=== PATIENT | female | born 1980 | race Caucasian/White ===

== ENCOUNTER → 2020-02-10 08:26 | Outpatient (BNVA) | payer OTHER, SELFPAY | PROVIDERS: Family Provider Family Medicine; PCP Family Medicine; Visit Provider Urology | DX: N31.9 Neuromuscular dysfunction of bladder, unspecified (principal); N30.80 Other cystitis without hematuria; R32 Unspecified urinary incontinence | CPT/HCPCS: 81001 ==

== ENCOUNTER → 2020-08-16 09:22 | Outpatient (BNVA) | payer BC, SELFPAY | PROVIDERS: Family Provider Family Medicine; PCP Family Medicine; Referring Provider Family Medicine; Visit Provider Orthopaedic Surgery | DX: M17.0 Bilateral primary osteoarthritis of knee (principal); M25.562 Pain in left knee | CPT/HCPCS: 73560; 73565 ==

== ENCOUNTER 2021-02-11 21:15 | Emergency (ER) | payer BC, SELFPAY ==
[2021-02-11 21:15] VITALS: BP 133/80; PULSE 82; RESP 16; TEMP 37.4; O2SAT 94; BMI 39.9
--- NOTE | 2021-02-11 21:50 | XRR_ITS ---
PROCEDURE INFORMATION: Exam: XR Chest Exam date and time: 02/11/2021 9:50 PM Age: 40 years old Clinical indication: Dyspnea; Additional info: SOB TECHNIQUE: Imaging protocol: XR of the chest. Views: 1 view. COMPARISON: CR XR KUB [id number] 03/22/2017 7:46 AM FINDINGS: Lungs: Patchy poorly defined ground-glass foci in the lungs greater on right than left. No vascular dilation. Symmetric lung volumes. Pleural spaces: Unremarkable. No pleural effusion. No pneumothorax. Heart/Mediastinum: Unremarkable. No cardiomegaly. Bones/joints: Unremarkable. XR/XR chest 1V portable [id number] IMPRESSION: Patchy airspace disease in the lungs. Suspicious findings for atypical pneumonia. Recommend correlation for COVID-19 pneumonia.
--- NOTE | 2021-02-11 22:01 | ED_ITS ---
HPI - COVID General: Chief Complaint: COVID symptoms Stated Complaint: sob , dx with covid Time Seen by Provider: 02/11/21 22:01 Triage information: Has fever, cough or shortness of breath . Exposure to COVID + person last 14 days History of Present Illness: HPI Narrative: Patient presents with known positive Covid test. Patient symptoms started on January 30. She is out of quarantine 2 days ago. Was diagnosed with pneumonia she said the starting Covid took 1 day of antibiotic. MD complaint: known COVID positive Prior covid testing: yes, results known COVID 19 common symptoms: positive non-productive cough and dyspnea; negative fever(s), chills, body aches, headache(s), throat pain, nasal congestion, nausea or vomiting COVID 19 other sytmptoms: negative chest pain Onset (ago): day(s) Severity: mild Treatment prior to arrival: acetaminophen and ibuprofen COVID Results: No Data to Display Review of Systems Const: Denies: fever(s), chills or body aches Eyes: Denies: change in vision or blurry vision ENMT: Denies: throat pain or nasal congestion Card: Denies: chest pain or dyspnea on exertion Resp: Reports: dyspnea and non-productive cough GI: Denies: abdominal pain, nausea or vomiting Musc: Denies: extremity pain Skin/Breast: Denies: rash Neuro: Denies: headache(s) Psych: Denies: anxiety or depression Efe/Lymph: Denies: easy bruising PFS ED PFSH: Medical History (Updated 02/11/21 @ 22:51 by MARINO Lyons) Neurogenic bladder Recurrent UTI Status post hysteroscopy Urinary incontinence Surgical History History of removal of neck cyst Status post abdominoplasty Status post arthroscopic knee surgery Status post section x 3 Status post dilation and curettage Status post endometrial ablation Status post hysterectomy Status post repair of ligament of ankle Status post surgical removal of ganglion cyst right wrist volar ganglion Family History Mother , AT AGE 40-MVA BIPOLAR,MIGRAINE HEADACHES No problems noted. Grandfather CAD (coronary artery disease) Hypertension Social History Smoking and tobacco status: former smoker Alcohol intake: current Alcohol intake frequency: 0-2 Drinks per Day Marital status: Current occupational status: employed Physical Exam Const: COMMON NORMALS: no acute distress, average body habitus and patient oriented x3 HENMT: COMMON NORMALS: normocephalic HEAD & SCALP: normal to inspection and normocephalic FACE & SINUS: normal facial exam Eye: COMMON NORMALS: conjunctivae normal GENERAL EYE: appearance normal, both eyes and all related structures CONJUNCTIVA: Yes conjunctivae normal Neck/C-Spine: COMMON NORMALS: no JVD Chest: COMMONS NORMALS: normal inspection of the chest Resp: COMMON NORMALS: normal respiratory effort and clear to auscultation bilaterally AUSCULTATION: clear to auscultation bilaterally Cardio: COMMON NORMALS: no JVD, regular rate and regular rhythm RATE: regular rate RHYTHM: regular rhythm GI: INSPECTION: Yes normal to inspection Extremity: COMMON NORMALS: normal to inspection and full ROM Neuro: COMMON NORMALS: patient oriented x3 Course Vital Signs: Vital signs: Vital Signs Temperature 98.7 F 02/11/21 23:38 Pulse Rate 80 02/11/21 23:38 Respiratory Rate 18 02/11/21 23:38 Blood Pressure 123/80 02/11/21 22:36 Pulse Oximetry 95 02/11/21 23:38 MDM - COVID MDM Narrative: Medical decision making narrative: Patient just finished ntine for Covid. Was placed on antibiotic and took 1 day prior to having Covid. Because she had pneumonia. Radiology reveals patchy airspace disease for atypical pneumonia consistent with past Covid diagnosed with patient placed on a steroid and antibiotic and asked to follow-up primary care provider patient follow signs were stable throughout stay here. COVID Results: No Data to Display Discharge Plan Discharge Patient Disposition: Home Clinical Impression: COVID-19 Condition: Stable Prescriptions: New Zithromax Z-Rolo 250 mg tablet See Rx Instructions .ROUTE .COMPLEX Qty: 6 RF: 0 dexamethasone 6 mg tablet 6 mg PO DAILY Qty: 7 RF: 0 No Action cyclobenzaprine 15 mg capsule,extended release 24hr 15 mg PO .QHS RF: 0 oxycodone 5 mg capsule 5 mg PO Q12H PRNRF: 0 topiramate [Topamax] 100 mg tablet 125 mg PO .QHS RF: 0 prednisone 10 mg tablet 10 mg PO DAILY RF: 0 polyethylene glycol 3350 [Miralax] 17 gram/dose powder 17 gm PO DAILY RF: 0 ciprofloxacin HCl 500 mg tablet 500 mg PO BID Qty: 42 RF: 6 Discharge Orders: Discharge ED (Routine); Ordered 02/11/21 Ordered By: Toan Reynolds Referrals: Genna Thorne MD [Primary Care Provider] - Discharge Diet: Usual diet Discharge Activity: Resume usual activity Activity Restrictions/Additional Instructions: Follow-up with medical provider as directed. Take medications as prescribed. Return to the ER or your medical provider if condition worsens. Please read and understand discharge instructions. If any questions ask please. Coding Level of Care Code ED Mechanical Adjuster for Nolan Fwgregory Exam Comprehensive
[2021-02-11 22:32] VITALS: O2SAT 94
[2021-02-11 22:36] VITALS: BP 123/80; PULSE 70; RESP 17; O2SAT 94
[2021-02-11] MEDS: azithromycin 250 mg Tablet 500 MG PO (23:08)
[2021-02-11] MEDS: dexamethasone 4 mg Tablet 10 MG PO (23:08)
[2021-02-11] MEDS: ondansetron 4 MG Tablet 8 MG PO (23:27)
[2021-02-11 23:38] VITALS: PULSE 80; RESP 18; TEMP 37.1; O2SAT 95
== END 2021-02-11 23:30 | disposition home or self-care (01) ==
PROVIDERS: Emergency Provider Nurse Practitioner Family; PCP Family Medicine
DX: U07.1 COVID-19 (principal); Z87.891 Personal history of nicotine dependence
CPT/HCPCS: 71045; 99283; J8540; Q0144; Q0162

== ENCOUNTER 2021-02-24 07:14 | Outpatient (CLI) | payer BC, SELFPAY ==
--- NOTE | 2021-02-24 07:25 | XR_ITS ---
WS: [id number] XR chest 2V* [id number] REASON FOR EXAM: DYSPNEA, POST COVID FINDINGS: The previously identified patchy infiltrative changes in the right upper midlung and right lower and left lower lungs shows significant resolution with minimal residual abnormality. No new findings. XR/XR chest 2V* [id number] IMPRESSION: Significant resolution of previously defined infiltrates. Small residuals rand antonio
--- NOTE | 2021-02-24 07:25 | USCV_ITS ---
Zainab Gee Age: 40 Gender: F : 1980 Exam Date: 02/24/2021 07:40 Ordering Phys: Genna Thorne MD Technologist: Amy Rojas [place]am [place] [facility] [place]: COVID + STILL WITH SYMPTOMS. WATER RETENTION CHEST PAIN BP: / HR: 61 Rhythm: Sinus Technical Quality: Adequate MEASUREMENTS (Male / Female) Normal Values 2D ECHO LV Diastolic Diameter PLAX 4.1 cm 4.2 - 5.9 / 3.9 - 5.3 cm LV Systolic Diameter PLAX 3.3 cm LV Chamber Size 4.3 cm IVS Diastolic Thickness 1.1 cm 0.6 - 1.0 / 0.6 - 0.9 cm IVS Systolic Thickness 0.9 cm LVPW Diastolic Thickness 1.2 cm 0.6 - 1.0 / 0.6 - 0.9 cm LVPW Systolic Thickness 1.2 cm RV Chamber Size 2.9 cm LVOT Diameter 2.1 cm LV Ejection Fraction 2D Teich 38.6 % LV Ejection Fraction MOD 2C 33.1 % LV Ejection Fraction 2C AL 36.0 % LA Diameter 3.3 cm LA Width 3.1 cm LA Height 4.1 cm RA Width 3.0 cm RA Height 4.5 cm Aorta at Sinotubular Diameter 3.0 cm M-MODE LV Diastolic Diameter MM 4.7 cm 4.2 - 5.9 / 3.9 - 5.3 cm LV Systolic Diameter MM 3.3 cm LV Ejection Fraction MM Teich 56.8 % IVS Diastolic Thickness MM 1.1 cm 0.6 - 1.0 / 0.6 - 0.9 cm IVS Systolic Thickness MM 1.4 cm LVPW Diastolic Thickness MM 0.8 cm 0.6 - 1.0 / 0.6 - 0.9 cm LVPW Systolic Thickness MM 1.5 cm Aortic Annulus Diameter 3.3 cm LA Ao Ratio MM 1.1 MV E Point Septal Separation 0.6 cm DOPPLER AV Peak Velocity 104.0 cm/s LVOT Peak Velocity 96.0 cm/s AV Area Cont Eq vti 2.5 cm squared AV Area Cont Eq pk 3.1 cm squared MV Area PHT 3.1 cm squared Mitral E to A Ratio 1.5 MV E' Velocity 48.0 cm/s Mitral E to MV E' Ratio 6.8 Mitral E to LV E' Lateral Ratio 5.8 Mitral E to LV E' Septal Ratio 8.1 TR Peak Velocity 120.1 cm/s TR Peak Gradient 5.8 mmHg TR Mean Velocity 86.6 cm/s TR Mean Gradient 3.2 mmHg TR Velocity Time Integral 23.4 cm TV Peak E Velocity 86.0 cm/s Right Atrial Pressure 3.0 mmHg Pulmonary Artery Systolic Pressu 8.8 mmHg PV Peak Velocity 61.0 cm/s RV Acceleration Time 0.1 s RV Ejection Time 0.4 s RV AcT/ET 0.4 FINDINGS Left Ventricle Normal left ventricular cavity size. Normal left ventricular systolic function. No regional wall motion abnormalities. Left ventricular ejection fraction is estimated at 60 %. Normal diastolic function. Right Ventricle The right ventricle is normal in size and function. Right Atrium The right atrium is normal in size. Left Atrium The left atrium is normal in size. Mitral Valve Structurally normal mitral valve without significant stenosis or prolapse. There is no mitral regurgitation. Aortic Valve Structurally normal aortic valve without significant sclerosis or stenosis. There is no aortic regurgitation. Tricuspid Valve Structurally normal tricuspid valve without significant stenosis or regurgitation. Pulmonary artery systolic pressure is normal. Pulmonic Valve Structurally normal pulmonic valve without significant stenosis. There is no pulmonic regurgitation. Pericardium Normal pericardium without effusion. Aorta Normal ascending aorta dimension. CONCLUSIONS 1-Normal left ventricular cavity size. Normal left ventricular systolic function. No regional wall motion abnormalities. Left ventricular ejection fraction is estimated at 60 %. Normal diastolic function. 2-There is no pericardial effusion. 3-No significant valve abnormalities. 4-Right atrial pressure is around 5 mm of mercury. 5-There are no prior echocardiogram studies to compare. Juanita Scott MD (Electronically Signed) Final Date: 25 February 2021 17:01 S
--- NOTE | 2021-02-24 08:17 | ECG_ITS ---
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
== END 2021-02-24 07:15 | disposition home or self-care (01) ==
PROVIDERS: PCP Family Medicine; Visit Provider Family Medicine
DX: R07.89 Other chest pain (principal); R60.9 Edema, unspecified; R06.00 Dyspnea, unspecified; U07.1 COVID-19; B94.8 Sequelae of other specified infectious and parasitic diseases
CPT/HCPCS: 71046; 93005; 93306

== ENCOUNTER 2021-06-05 15:16 | Outpatient (RCR) | payer BC, SELFPAY | END 2021-06-27 23:59 | disposition home or self-care (01) | LOC: SPT 15:16 | PROVIDERS: PCP Family Medicine; Referring Provider Ophthalmology; Visit Provider Ophthalmology | DX: Z47.1 Aftercare following joint replacement surgery (principal); Z96.652 Presence of left artificial knee joint | CPT/HCPCS: 97110; 97161 ==

== ENCOUNTER 2021-06-13 15:00 | Outpatient (CLI) | payer BC, SELFPAY ==
--- NOTE | 2021-06-13 15:04 | XR_ITS ---
WS: [id number] Exam: XR ankle LT min 3V* [id number] Date/Time of Exam: 06/13/2021 3:08 PM Reason For Exam: PAIN IN LEFT ANKLE JOINTS OF LEFT FOOT Findings: Multiple views of the ankle reveal no fracture or displacements of bone. No soft tissue swelling is present. There are no periosteal reactions noted. The talus and calcaneus are in adequate position. The joint space is smooth and equidistant. XR/XR ankle LT min 3V* [id number] IMPRESSION: Negative left ankle.
== END 2021-06-13 15:01 | disposition home or self-care (01) ==
LOC: RAD 15:03
PROVIDERS: PCP Family Medicine; Visit Provider Family Medicine
DX: M25.572 Pain in left ankle and joints of left foot (principal)
CPT/HCPCS: 73610

== ENCOUNTER 2021-06-28 06:00 | Outpatient (RCR) | payer BC, SELFPAY | END 2021-07-28 23:59 | disposition home or self-care (01) | LOC: SPT 06:00 | PROVIDERS: PCP Family Medicine; Referring Provider Ophthalmology; Visit Provider Ophthalmology | DX: Z96.652 Presence of left artificial knee joint (principal) | CPT/HCPCS: 97110 ==

== ENCOUNTER 2021-07-29 06:00 | Outpatient (RCR) | payer OTHER, SELFPAY | END 2021-08-28 23:59 | disposition home or self-care (01) | LOC: SPT 06:00 | PROVIDERS: PCP Family Medicine; Referring Provider Ophthalmology; Visit Provider Ophthalmology | DX: Z47.1 Aftercare following joint replacement surgery (principal); Z96.652 Presence of left artificial knee joint | CPT/HCPCS: 97110 ==

== ENCOUNTER 2021-08-29 06:00 | Outpatient (RCR) | payer OTHER, SELFPAY | END 2021-09-25 23:59 | disposition home or self-care (01) | LOC: SPT 06:00 | PROVIDERS: PCP Family Medicine; Visit Provider Student in an Organized Health Care Education/Training Program | DX: Z47.1 Aftercare following joint replacement surgery (principal); Z96.652 Presence of left artificial knee joint | CPT/HCPCS: 97110 ==

== ENCOUNTER 2021-09-26 06:00 | Outpatient (RCR) | payer OTHER, SELFPAY | END 2021-09-28 23:59 | disposition home or self-care (01) | LOC: SPT 06:00 | PROVIDERS: PCP Family Medicine; Visit Provider Student in an Organized Health Care Education/Training Program | DX: Z47.1 Aftercare following joint replacement surgery (principal); Z96.652 Presence of left artificial knee joint | CPT/HCPCS: 97110 ==

== ENCOUNTER 2022-03-05 09:34 | Outpatient (RCR) | payer OTHER, SELFPAY | END 2022-03-28 23:59 | disposition home or self-care (01) | LOC: SPT 09:34 | PROVIDERS: PCP Family Medicine; Referring Provider Family Medicine; Visit Provider Family Medicine | DX: Z96.651 Presence of right artificial knee joint (principal) | CPT/HCPCS: 97110; 97161; G0283 ==

== ENCOUNTER 2022-03-29 06:00 | Outpatient (RCR) | payer OTHER, SELFPAY | END 2022-04-27 23:59 | disposition home or self-care (01) | LOC: SPT 06:00 | PROVIDERS: PCP Family Medicine; Referring Provider Family Medicine; Visit Provider Family Medicine | DX: Z96.651 Presence of right artificial knee joint (principal); M25.561 Pain in right knee; Z47.89 Encounter for other orthopedic aftercare | CPT/HCPCS: 97110 ==

== ENCOUNTER 2022-04-28 06:00 | Outpatient (RCR) | payer OTHER, SELFPAY | END 2022-05-03 23:59 | disposition home or self-care (01) | LOC: SPT 06:00 | PROVIDERS: PCP Family Medicine; Visit Provider Family Medicine | DX: Z96.651 Presence of right artificial knee joint (principal) | CPT/HCPCS: 97110 ==

== ENCOUNTER 2022-08-30 08:19 | Outpatient (CLI) | payer OTHER, SELFPAY ==
--- NOTE | 2022-08-30 08:38 | MM_ITS ---
WS: [id number] BILATERAL SCREENING DIGITAL TOMOSYNTHESIS MAMMOGRAM WITH CAD HISTORY: SCREENING COMPARISON: None available. Bilateral CC and MLO views with tomosynthesis and synthetic mammography submitted. Computer aided det ection analyzed. Breast composition: There are scattered areas of fibroglandular density. No suspicious masses, microc alcifications or architectural distortion. Benign LEFT breast axillary tail lymph node. No suspicious masses. MM/[id number] IMPRESSION: BI-RADS: 2-Benign FOLLOW UP: 1 Year Follow-up
== END 2022-08-30 08:20 | disposition home or self-care (01) ==
LOC: RAD 08:23
PROVIDERS: PCP Family Medicine; Visit Provider Family Medicine
DX: Z12.31 Encounter for screening mammogram for malignant neoplasm of breast (principal)
CPT/HCPCS: 77063; 77067

== ENCOUNTER 2024-01-20 15:30 | Outpatient (CLI) | payer OTHER, SELFPAY ==
--- NOTE | 2024-01-20 | MM_ITS ---
WS: [id number] BILATERAL 3D TOMOSYNTHESIS DIGITAL SCREENING MAMMOGRAPHY WITH CAD CLINICAL INFORMATION: SCREENING HISTORY: Screening mammogram. No current complaints. COMPARISON: 2022 TECHNIQUE: Bilateral CC and MLO views. FINDINGS: Scattered fibroglandular densities bilaterally. No suspicious focal mass, asymmetry, calcifications, or architectural distortion. No evidence of malignancy. Unchanged axillary tail lymph node. A few inc idental punctate calcifications. MM/[place] [id number] IMPRESSION: BI-RADS: 2-Benign FOLLOW UP: 1 Year Follow-up Recommend return to annual screening mammography.
== END 2024-01-20 15:35 | disposition home or self-care (01) ==
PROVIDERS: PCP Family Medicine; Visit Provider Family Medicine
DX: Z12.31 Encounter for screening mammogram for malignant neoplasm of breast (principal); R92.323 Mammographic fibroglandular density, bilateral breasts; R92.1 Mammographic calcification found on diagnostic imaging of breast
CPT/HCPCS: 77063; 77067

== ENCOUNTER 2024-09-21 18:09 | Emergency (ER) | payer OTHER, SELFPAY ==
[2024-09-21 18:21] VITALS: BP 115/75; PULSE 80; RESP 16; TEMP 36.7; O2SAT 100; BMI 28.2
[2024-09-21 19:51] LABS: Basophils # 0.1 10^3/uL (0.0-0.1); Basophils % 0.9 %; Eosinophils # 0.2 10^3/uL (0.0-0.8); Eosinophils % 3.1 %; Hematocrit 38.5 % (36-47); Lymphocytes # 3.1 10^3/uL (0.8-4.8); Lymphocytes % 40.8 %; Mean Corpuscular HGB Conc 31.9 g/dL (30-55); Mean Corpuscular Hemoglobin 32.4 pg (27-33); Mean Corpuscular Volume 101.3 fl (85-98); Mean Platelet Volume 11.1 fL (7.4-10.4); Monocytes # 0.4 10^3/uL (0.2-0.9); Monocytes % 5.3 %; Neutrophils # 3.72 10^3/uL (1.8-7.7); Neutrophils % 49.6 %; Nucleated Red Blood Cells % 0 %; Platelet Count 344 10^3/cmm (157-399); Red Cell Distribution Width 13.3 % (12.1-15.1)
[2024-09-21 20:14] LABS: Alanine Aminotransferase 41 U/L (0-33); Albumin Level 4.1 g/dL (3.5-5.2); Alkaline Phosphatase 116 U/L (35-105); Aspartate Amino Transferase 40 U/L (0-32); Blood Urea Nitrogen 16 mg/dL (6-20); Calcium 9.2 mg/dL (8.5-10.5); Carbon Dioxide 21 mmol/L (22-29); Chloride 108 mmol/L (98-107); Creatinine Clr Calc Pharmacy 125.8571; Globulin 2.9 g/dL (1.3-4.6); Glomerular Filtration Rate 108.1 mL/min (90-130); Glucose 106 mg/dL (65-115); Lipase 16 U/L (13-60); Osmolality Calculated 292 mOsm/kg (285-295); Sodium 140 mmol/L (136-145); Total Bilirubin 0.3 mg/dL (0.15-1.2)
--- NOTE | 2024-09-21 20:53 | W.ED.FEMALGU ---
HPI - Female Genitourinary General: Chief complaint: Urogenital-Female Stated complaint: Stint Infected Time Seen by Provider: 09/21/24 20:49 History of Present Illness: 44-year-old female with a history of recent stent placement in her ureter. States she is been having low-grade fevers and worsening pain. This was all done a little over 2 weeks ago. Over the last few days she has had worsening pain. Low-grade fevers. She is on Ceftin. Some nausea but no vomiting. Related Data Home Medications ?Medication ?Instructions ?Recorded ?Confirmed cholecalciferol (vitamin D3) 25 25 mcg PO DAILY 11/05/22 02/15/24 mcg (1,000 unit) capsule gabapentin 300 mg capsule 300 mg PO DAILY 11/05/22 02/15/24 nortriptyline 25 mg capsule 25 mg PO DAILY 11/05/22 02/15/24 furosemide 20 mg tablet 20 mg PO DAILY PRN edema 02/01/23 02/15/24 potassium chloride 10 mEq 10 meq PO DAILY PRN 02/01/23 02/15/24 capsule,extended release topiramate 100 mg tablet (Topamax) 150 mg PO .QHS 02/01/23 02/15/24 Previous Rx's ?Medication ?Instructions ?Recorded prednisolone acetate 1 % eye 1 drp ophthalmic (eye) QID 3 days 02/15/24 drops,suspension #5 mL ciprofloxacin HCl 500 mg tablet 500 mg PO BID 10 days #20 tabs 09/21/24 Allergies Allergy/AdvReac Type Severity Reaction Status Date / Time butorphanol (From Stadol) Allergy UNKNOWN Verified 09/21/24 18:27 influenza A (H1N1) virus Allergy UNKNOWN Verified 09/21/24 18:27 vaccine [id number] 2008 (From influenza A (H1N1)) Influenza Virus Vaccines Allergy Rash Verified 09/21/24 18:27 levofloxacin (From Levaquin) Allergy UNKNOWN Verified 09/21/24 18:27 nitrofurantoin (From Allergy UNKNOWN Verified 09/21/24 18:27 Macrobid) scopolamine Allergy Unknown Verified 09/21/24 21:06 sulfamethoxazole (From Allergy UNKNOWN Verified 09/21/24 18:27 Bactrim) trimethoprim (From Bactrim) Allergy UNKNOWN Verified 09/21/24 18:27 bupropion (From Wellbutrin) AdvReac Severe Made Verified 09/21/24 18:27 suicidal. fluoxetine (From Prozac) AdvReac Severe Made Verified 09/21/24 18:27 suicidal on higher dose (20 mg +) Review of Systems Narrative: Constitutional symptoms: Negative except as documented in HPI. Skin symptoms: Negative except as documented in HPI. Eye symptoms: Negative except as documented in HPI. ENMT symptoms: Negative except as documented in HPI. Respiratory symptoms: Negative except as documented in HPI. Cardiovascular symptoms: Negative except as documented in HPI. Gastrointestinal symptoms: Negative except as documented in HPI. Genitourinary symptoms: Negative except as documented in HPI. Musculoskeletal symptoms: Negative except as documented in HPI. Neurologic symptoms: Negative except as documented in HPI. Psychiatric symptoms: Negative except as documented in HPI. Endocrine symptoms: Negative except as documented in HPI. PFSH ED PFSH: Medical History (Updated 09/21/24 @ 23:49 by Quin Carty MD) Status post hysteroscopy Recurrent UTI Urinary incontinence Neurogenic bladder Surgical History Status post endometrial ablation History of removal of neck cyst Status post repair of ligament of ankle Status post dilation and curettage Status post section x 3 Status post arthroscopic knee surgery Status post abdominoplasty Status post hysterectomy Status post surgical removal of ganglion cyst right wrist volar ganglion Family History Mother , AT AGE 40-MVA BIPOLAR,MIGRAINE HEADACHES No problems noted. Grandfather CAD (coronary artery disease) Hypertension Social History Smoking and tobacco/nicotine status: unknown if used tobacco/nicotine Alcohol intake: current Alcohol intake frequency: 0-2 Drinks per Day Substance/Drug Use: never Marital status: Current occupational status: employed Physical Exam Narrative: EXAM NARRATIVE: General: Alert, no acute distress. Skin: Warm, dry. Head: Normocephalic, atraumatic. Neck: Supple, trachea midline. Eye: Extraocular movements are intact. Ears, nose, mouth and throat: Tacky oral mucosa Cardiovascular: Regular, Normal peripheral perfusion. Respiratory: Lungs are clear to auscultation, respirations are non-labored, breath sounds are equal, Symmetrical chest wall expansion. Gastrointestinal: Soft, Nontender, Non distended Musculoskeletal: Normal ROM, no deformity. Neurological: Alert and oriented, No focal neurological deficit observed. Psychiatric: Cooperative, appropriate mood & affect. Course Vital Signs: Vital signs: Vital Signs Temperature 98.0 F 09/21/24 18:21 Pulse Rate 70 09/21/24 21:03 Respiratory Rate 16 09/21/24 21:03 Blood Pressure 129/77 09/21/24 21:03 Pulse Oximetry 100 09/21/24 21:03 Oxygen Delivery Me thod Room Air 09/21/24 21:03 MDM - Female Medical Decision Making Medical decision making: Differential diagnosis including but not limited to and based on the above HPI, review of systems and physical exam: Ureterolithiasis. Urinary tract infection. Appendicitis. Cholecystis. Musculoskeletal / back pain. Pyelonephritis Orders placed to evaluate differential diagnosis based on the above differential, HPI and physical exam Lab Review: Laboratory results were reviewed and interpreted by myself the emergency room physician. Lab work is fairly unremarkable. No leukocytosis. No anemia. No renal failure. There is blood in her urine. Greater than 50 red cells but only 5-10 whites. This would be expected with ureteral stent. CT of the abdomen pelvis: Ureteral stent in position and appropriately placed. Mild to moderate hydronephrosis despite presence of stent which might suggest ureteral stent occlusion. Punctate nonobstructing renal stone. No stones in the ureter or bladder. This was reviewed and interpreted by myself the emergency room physician. I also reviewed the radiology report. I reviewed the patient's medical record. Consultation: I spoke with Dr. Motley who is on-call for urology at [facility]. He recommends changing her antibiotic to ciprofloxacin and she can call clinic tomorrow and likely needs her stent out soon. Reexamination: Pain is quite a bit better controlled. No further vomiting. We discussed at length her findings and my consultation with urology. She will call them tomorrow. She knows of warning signs to look for to return to the emergency room. No increased work of breathing. No altered mental status. Patient has an allergy to Levaquin but says she tolerates ciprofloxacin. Assessment and plan: Ureteral stent in place Renal colic ? 2 doses of Dilaudid, IV Zofran, IV Toradol and a dose of cefepime here. - Discharged home - Discussed plan with patient. Answered any questions. - Evaluation and treatment of this problem were appropriate in the emergency setting. Lab Data 09/21/24 19:29 09/21/24 19:29 Radiology Impressions Abdomen/Pelvis CT 09/21/24 21:57 IMPRESSION: 1. Right internal ureteral stent position with the proximal loop in the right renal pelvis and the distal loop crossing the midline in the left aspect of the bladder. 2. [id number] right hydroureteronephrosis despite presence of internal stent, possible stent occlusion. 3. Punctate nonobstructing right renal stone. No evidence of stones along the course of the stent. Laboratory Results WBC 7.50 10^3/uL (3.29-11.43) 09/21/24 19: RBC 3.80 10^6/uL (3.85-5.65) L 09/21/24 19:29 Hgb 12.30 g/dL (11.27-16.99) 09/21/24 19: Hct 38.5 % (36-47) 09/21/24 19: MCV 101.3 fl (85-98) H 09/21/24 19:29 MCH 32.4 pg (27-33) 09/21/24 19: MCHC 31.9 g/dL (30-55) 09/21/24 19: RDW 13.3 % (12.1-15.1) 09/21/24 19: Plt Count 344 10^3/cmm (157-399) 09/21/24 19: MPV 11.1 fL (7.4-10.4) H 09/21/24 19: Neut % (Auto) 49.6 % 09/21/24 19:29 Lymph % (Auto) 40.8 % 09/21/24 19:29 [place] % (Auto) 5.3 % 09/21/24 19: Eos % (Auto) 3.1 % 09/21/24 19: Baso % (Auto) 0.9 % 09/21/24 19:29 Neut # (Auto) 3.72 10^3/uL (1.8-7.7) 09/21/24 19: Lymph # (Auto) 3.1 10^3/uL (0.8-4.8) 09/21/24 19:29 [place] # (Auto) 0.4 10^3/uL (0.2-0.9) 09/21/24 19: Eos # (Auto) 0.2 10^3/uL (0.0-0.8) 09/21/24 19:29 Baso # (Auto) 0.1 10^3/uL (0.0-0.1) 09/21/24 19: Nucleated RBC % (auto) 0 % 09/21/24 19: Nucleated RBCs # 0.0 /100WBC 09/21/24 19: Sodium 140 mmol/L (136-145) 09/21/24 19: Potassium 4.0 mmol/L (3.5-5.1) 09/21/24 19: Chloride 108 mmol/L (98-107) H 09/21/24 19: Carbon Dioxide 21 mmol/L (22-29) L 09/21/24: Anion Gap 15.0 (5-19) 09/21/24 19: BUN 16 mg/dL (6-20) 09/21/24 19: Creatinine 0.6 mg/dL (0.5-0.9) 09/21/24 19: GFR Calculation 108.1 mL/min (90-130) 09/21/24 19: Glucose 106 mg/dL (65-115) 09/21/24 19: Calculated Osmolality 292 mOsm/kg (285-295) 09/21/24 19: Lactic Acid 0.9 mmol/L (0.5-2.2) 09/21/24 20:39 Calcium 9.2 mg/dL (8.5-10.5) 09/21/24 19: Total Bilirubin 0.3 mg/dL (0.15-1.2) 09/21/24 19:29 AST 40 U/L (0-32) H 09/21/24 19:29 ALT 41 U/L (0-33) H 09/21/24 19:29 Alkaline Phosphatase 116 U/L (35-105) H 09/21/24 19: C-Reactive Protein 3.0 mg/L (0.0-4.9) 09/21/24 19: Total Protein 7.0 g/dL (6.6-8.7) 09/21/24 19: Albumin 4.1 g/dL (3.5-5.2) 09/21/24 19: Globulin 2.9 g/dL (1.3-4.6) 09/21/24 19: Lipase 16 U/L (13-60) 09/21/24 19:29 Urine Color Dark yellow (Yellow) A 09/21/24 20:52 Urine Appearance Cloudy (CLEAR) A 09/21/24 20:52 Urine pH 6.5 (5-7) 09/21/24 20:52 Ur Specific [place] 1.012 (1.005-1.030) 09/21/24 20:52 Urine Protein 2+ (Negative) A 09/21/24 20:52 Urine Glucose (UA) Negative (Normal) 09/21/24 20:52 Urine Ketones Trace (Negative) 09/21/24 20:52 Urine Blood 3+ (Negative) A 09/21/24 20:52 Urine Nitrate Negative (Negative) 09/21/24 20:52 Urine Bilirubin Negative (Negative) 09/21/24 20:52 Urine Urobilinogen 0.2 mg/dL (Negative) 09/21/24 20:52 Ur Leukocyte Esterase 2+ (Negative) A 09/21/24 20:52 Urine RBC 50-80 /hpf (0-2) H 09/21/24 20:52 Urine WBC 5-10 /hpf (0-5) H 09/21/24 20:52 Ur Squamous Epith Cells 0-4 /hpf (0-5) H 09/21/24 20:52 Amorphous Sediment Not Reportable 09/21/24 20:52 Urine Bacteria None /hpf (NONE) 09/21/24 20:52 Urine Mucus 1+ /hpf 09/21/24 20:52 All radiology interpretation(s) finalized by discharge Discharge Plan Discharge Patient Disposition: Home Clinical Impression: Ureteral stent present, Renal colic Condition: Stable Prescriptions: New ciprofloxacin HCl 500 mg tablet 500 mg PO BID 10 Days Qty: 20 0RF No Action topiramate [Topamax] 100 mg tablet 150 mg PO .QHS prednisolone acetate 1 % drops,suspension 1 drp ophthalmic (eye) QID 3 Days Qty: 5 0RF nortriptyline 25 mg capsule 25 mg PO DAILY gabapentin 300 mg capsule 300 mg PO DAILY cholecalciferol (vitamin D3) 25 mcg (1,000 unit) capsule 25 mcg PO DAILY furosemide 20 mg tablet 20 mg PO DAILY PRN (Reason: edema) potassium chloride 10 mEq capsule, extended release 10 meq PO DAILY PRN Discharge Orders: Discharge ED (Routine); Ordered 09/21/24 Ordered By: Quin Carty Referrals: Genna Thorne MD [Primary Care Provider] - Discharge Diet: Usual diet Discharge Activity: Increase activity as tolerated Patient Instructions: Renal Colic (ED), Abdominal Pain (ED), Ureteral Stent Placement (DC), Opioid Safety, Pain Management Activity Restrictions/Additional Instructions: Please call your urologist first thing tomorrow to schedule appointment for probable removal of ureteral stent. If you develop worsening fevers, pain intractable nausea and vomiting or other concerns please return to the emergency room. Thank you for choosing [facility] for your healthcare needs today. Please realize this is an emergency room and that we are providing you with a medical screening exam and this may not be complete and all inclusive of all the testing and or work up that you may need to determine your ailment or severity of your illness. You have been screened and evaluated and felt safe for discharge. Health conditions do change or evolve sometimes and as such it is important that you follow up with your Primary Doctor to be re checked, 3-5 days is a general good time frame for follow up. You are always welcome to return to the ED for re assessment if your symptoms are worsening or you have new concerns Print Language: Nepali Coding Level of Care Code ED Supervisor Fireworks Assembly for Nolan Ramírez
[2024-09-21 21:03] VITALS: BP 129/77; PULSE 70; RESP 16; O2SAT 100
[2024-09-21 21:04] LABS: Bilirubin Urine Negative (Negative); Blood Urine 3+ (Negative); Glucose Urine UA Negative (Normal); Ketones Urine Trace (Negative); Leukocyte Esterase Urine 2+ (Negative); Nitrate Urine Negative (Negative); Protein Urine 2+ (Negative); Specific Gravity, Urine 1.012 (1.005-1.030); Urine Appearance Cloudy (CLEAR); Urobilinogen Urine 0.2 mg/dL (Negative); pH Urine 6.5 (5-7)
[2024-09-21 21:22] LABS: UA Slide Review UA Slide Review Perf; Urine Color Dark Yellow (Yellow)
[2024-09-21 21:23] LABS: Add Urine Culture? Yes; Add Urine Microscopic? YES; Mucus Urine 1+ /hpf; RBC Urine 50-80 /hpf (0-2); Squamous Epithelial Cell Urine 0-4 /hpf (0-5)
[2024-09-21] MEDS: sodium chloride 0.9% 1,000 ML 999 ML IV (21:40)
[2024-09-21] MEDS: ondansetron 2 mg/ML SDV 2 mL 4 MG IVP (21:40)
[2024-09-21] MEDS: HYDROMORPHONE HCL 0.5 MG/0.5 ML INJ IVP (21:48)
[2024-09-21] MEDS: ketorolac 30 mg/mL INJ IVP (21:48)
--- NOTE | 2024-09-21 21:57 | CTR_ITS ---
PROCEDURE INFORMATION: Exam: CT Abdomen And Pelvis Without Contrast Exam date and time: 09/21/2024 10:17 PM Age: 44 years old Clinical indication: Abdominal pain; Flank; Right; Prior surgery; Surgery date: <1 month; Surgery type: Ureteral stent placed 09/04/2024, lithotripsy 09/14/2024. Partial hysterectomy, gastric bypass; Additional info: Ureteral stent, pain TECHNIQUE: Imaging protocol: Computed tomography of the abdomen and pelvis without contrast. Radiation optimization: All CT scans at this facility use at least one of these dose optimization techniques: automated exposure control; mA and/or kV adjustment per patient size (includes targeted exams where dose is matched to clinical indication); or iterative reconstruction. COMPARISON: None available. RADIATION DOSE METRICS: Total DLP (mGy-cm): 619.23 FINDINGS: Liver: Normal. No mass. Gallbladder and biliary ducts: Status post cholecystectomy. No evidence of significant biliary obstruction. Pancreas: Normal. No ductal dilation. Spleen: Normal. No splenomegaly. Adrenal glands: Normal. No mass. Kidneys and ureters: Right internal ureteral stent position with the proximal loop in the right renal pelvis and the distal loop crossing the midline in the left aspect of the bladder. [id number] right hydroureteronephrosis despite presence of internal stent, possible stent occlusion. Punctate nonobstructing right renal stone. No evidence of stones along the course of the stent. 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 Bowel has normal caliber. Appendix: No evidence of appendicitis. Intraperitoneal space: Unremarkable. No free air. No significant fluid collection. Vasculature: Unremarkable. No abdominal aortic aneurysm. Lymph nodes: Unremarkable. No enlarged lymph nodes. Urinary bladder: Unremarkable as visualized. Reproductive: Uterus is surgically absent. No evidence of adnexal mass. Bones/joints: Unremarkable. No acute fracture. Soft tissues: Unremarkable. CT/CT abdomen pelvis wo con [id number] IMPRESSION: 1. Right internal ureteral stent position with the proximal loop in the right renal pelvis and the distal loop crossing the midline in the left aspect of the bladder. 2. [id number] right hydroureteronephrosis despite presence of internal stent, possible stent occlusion. 3. Punctate nonobstructing right renal stone. No evidence of stones along the course of the stent.
[2024-09-21 22:00] VITALS: BP 110/71; PULSE 79; O2SAT 99
[2024-09-21] MEDS: cefepime 2,000 mg SDV 2000 MG IVP (22:11)
[2024-09-21 22:15] LABS: Lactic Sepsis W/Reflex 0.9 mmol/L (0.5-2.2)
[2024-09-21 23:00] VITALS: BP 102/62; PULSE 75; O2SAT 97
[2024-09-22 00:21] VITALS: RESP 16
[2024-09-22] MEDS: HYDROmorphone 1 mg/mL INJ 1 mL IVP (00:21)
[2024-09-22 01:06] VITALS: BP 102/60; PULSE 59; RESP 16; O2SAT 16
== END 2024-09-22 01:08 | disposition home or self-care (01) ==
PROVIDERS: Emergency Medicine; Emergency Provider Emergency Medicine; PCP Family Medicine
DX: Z96.0 Presence of urogenital implants (principal); N23 Unspecified renal colic
CPT/HCPCS: 36415; 74176; 80053; 81001; 83605; 83690; 85025; 86140; 87040; 87086; 96361; 96374; 96375; 96376; 99285; J0692; J1171; J1885; J2405; J7030

== ENCOUNTER 2024-11-03 14:02 | Outpatient (RCR) | payer OTHER, SELFPAY | END 2024-11-25 23:59 | disposition home or self-care (01) | LOC: SPT 14:02 | PROVIDERS: Visit Provider Internal Medicine | DX: K59.04 Chronic idiopathic constipation (principal); M62.89 Other specified disorders of muscle | CPT/HCPCS: 97140; 97161; 97530 ==

== ENCOUNTER 2024-11-26 06:00 | Outpatient (RCR) | payer OTHER, SELFPAY | END 2024-12-26 23:59 | disposition home or self-care (01) | LOC: SPT 06:00 | PROVIDERS: Visit Provider Internal Medicine | DX: K59.04 Chronic idiopathic constipation (principal); M62.89 Other specified disorders of muscle | CPT/HCPCS: 97530 ==

== ENCOUNTER 2025-06-07 13:29 | Outpatient (CLI) | payer OTHER, SELFPAY ==
--- NOTE | 2025-06-07 13:33 | MM_ITS ---
WS: [id number] BILATERAL 3D TOMOSYNTHESIS DIGITAL SCREENING MAMMOGRAPHY WITH CAD CLINICAL INFORMATION: SCREENING HISTORY: Screening mammogram. No current complaints. COMPARISON: 2023 TECHNIQUE: Bilateral CC and MLO views. FINDINGS: Scattered fibroglandular densities bilaterally. No suspicious focal mass, asymmetry, calcifications, or architectural distortion. No evidence of malignancy. A few incidental punctate calcifications. MM/MM scr tomosynthesis [id number] IMPRESSION: DENSITY: There are scattered areas of fibroglandular density. BI-RADS: 2 - Benign. FOLLOW UP: 1 Year Follow-up Recommend return to annual screening mammography.
== END 2025-06-07 13:30 | disposition home or self-care (01) ==
LOC: RAD 13:29
PROVIDERS: PCP Nurse Practitioner Family; Visit Provider Nurse Practitioner Family
DX: Z12.31 Encounter for screening mammogram for malignant neoplasm of breast (principal); R92.323 Mammographic fibroglandular density, bilateral breasts; R92.1 Mammographic calcification found on diagnostic imaging of breast
CPT/HCPCS: 77063; 77067